=== PATIENT | female | born 1930 | race Caucasian/White ===

== ENCOUNTER 2017-11-26 11:44 | Emergency (ER) | payer OTHER, MEDICARE ==
[2017-11-26 12:22] VITALS: BP 150/79; PULSE 68; TEMP 98.6; BMI 23.2
--- NOTE | 2017-11-26 12:23 | PDOC ---
History of Present Illness - General Chief Complaint: Injury Stated Complaint: TRIP AND FALL Time Seen by Provider: 11/26/17 11:47 - History of Present Illness Initial Comments: 11/26/17 12:18 87yo F hx HTN, colon ca in remission p/w fall. [facility] Pt was walking in the hallway and tripped on uneven carpet. Pt reports head strike and states her glasses cut into the bridge of her nose causing bleeding. No LOC, remembers the entire event. Denies other injruies. Pt takes aspirin daily, no other AC. Denies mccollum, blurry vision, dizziness, weakness , numbness. States other than her lac bothering her, she has no other sxs. Does not remember last tdap. Able to ambulate post fall. EMS reports pt had complained of R rib pain but pt currently denies. Past History - Past Medical History Allergies/Adverse Reactions: Allergies Allergy/AdvReac Type Severity Reaction Status Date / Time Penicillins Allergy Unknown Verified 11/26/17 12:03 Home Medications: Ambulatory Orders Ascorbic Acid [Vitamin C] 500 mg PO DAILY 11/26/17 Aspirin [Aspirin EC] 81 mg PO DAILY 11/26/17 Calcium Carbonate/Vitamin D3 [Calcium 600 + Vitamin D Sftgl] 1 each PO DAILY Cholecalciferol (Vitamin D3) [Vitamin D3] 1,000 unit PO DAILY 11/26/17 Cyanocobalamin (Vitamin B-12) [B-12] 1,000 mcg PO DAILY 11/26/17 Isosorbide Mononitrate [Isosorbide Mononitrate ER] 30 mg PO DAILY 11/26/17 Levothyroxine [Synthroid -] 50 mcg PO DAILY 11/26/17 Losartan Potassium [Cozaar] 100 mg PO DAILY 11/26/17 Metoprolol Tartrate 12.5 mg PO BID 11/26/17 Multivit-Min/Iron/Folic/Lutein [Centrum Silver Women Tablet] 1 each PO DAILY Cancer: Yes (COLON) COPD: No - Surgical History Abdominal Surgery: Yes (FISTULA REPAIR, TEMPORARY OSTOMY (CLOSED)) GI Surgery: Yes (COLON RESECTION) - Suicide/Smoking/Psychosocial Hx Smoking History: Never smoked Hx Alcohol Use: Yes Drug/Substance Use Hx: No Substance Use Type: None Review of Systems - Review of Systems Comments:: 11/26/17 13:09 GENERAL/CONSTITUTIONAL: No fever or chills. No weakness. +fall HEAD, EYES, EARS, NOSE AND THROAT: No change in vision. No ear pain or discharge. No sore throat. GASTROINTESTINAL: No nausea, vomiting, diarrhea or constipation. GENITOURINARY: No dysuria, frequency, or change in urination. CARDIOVASCULAR: No chest pain or shortness of breath. RESPIRATORY: No cough, wheezing, or hemoptysis. MUSCULOSKELETAL: No joint or muscle swelling or pain. No neck or back pain. SKIN: +forehead lac NEUROLOGIC: No headache, vertigo, loss of consciousness, or change in strength/ sensation. ENDOCRINE: No increased thirst. No abnormal weight change. HEMATOLOGIC/LYMPHATIC: No anemia, easy bleeding, or history of blood clots. ALLERGIC/IMMUNOLOGIC: No hives or skin allergy. *Physical Exam - Vital Signs Last Vital Signs Temp Pulse Resp BP Pulse Ox 98.6 F 68 16 150/79 100 11/26/17 11:45 11/26/17 11:45 11/26/17 11:45 11/26/17 11:45 11/26/17 11:45 - Physical Exam Comments: 11/26/17 13:09 GENERAL: Awake, alert, and fully oriented, in no acute distress HEAD: See skin exam, no bony edema or ttp over nasal bridge, no other bony ttp or deformities EYES: PERRLA, EOMI, sclera anicteric, conjunctiva clear ENT: Auricles normal inspection, hearing grossly normal, nares patent, oropharynx clear without exudates. Moist mucosa NECK: Normal ROM, supple, no lymphadenopathy, JVD, or masses LUNGS: Breath sounds equal, clear to auscultation bilaterally. No wheezes, and no crackles HEART: Regular rate and rhythm, normal S1 and S2, no murmurs, rubs or gallops ABDOMEN: Soft, nontender, normoactive bowel sounds. No guarding, no rebound. No masses EXTREMITIES: Normal range of motion, no edema. No clubbing or cyanosis. No cords, erythema, or tenderness NEUROLOGICAL: Normal speech, cranial nerves intact, negative pronator drift, 5/ 5 strength in all 4 extremities, normal sensation to light touch in all 4 extremities, normal cerebellar exam, normal gait, normal reflexes and tone SKIN: 1cm horizontal lac in glabella. Otherwise, warm, Dry, normal turgor, no rashes or lesions noted. Medical Decision Making - Medical Decision Making 11/26/17 13:11 87yo F presents with mechanical fall after tripping on uneven carpet. Given head strike and age, will obtain CTH, Ct c-spine. No need for CT facial bones as no facial bony edema to ttp. WIll update tetanus as well. No other traumatic injury on exam. In light of EMS reporting R rib pain in transport, will get CXR although unlikely fracture as she denies current pain, SOB and has no hypoxia, ttp on exam. 11/26/17 14:12 CTH, c-spine with no acute fractures, ICH. Tdap updated. Lac repaired. Pt well appearing, pleasant, has no complaints. Requests DC home. Pt stable for DC to assisted living facility. I discussed the physical exam findings, ancillary test results and final diagnoses with the patient. I answered all of the patient's questions. The patient was satisfied with the care received and felt comfortable with the discharge plan and treatment plan. The patient will call their primary care physician within 24 hours to arrange follow-up and will return to the Emergency Department with any new, persistent or worsening symptoms. *DC/Admit/Observation/Transfer Diagnosis at time of Disposition: Fall, Laceration - Discharge Dispostion Disposition: HOME Condition at time of disposition: Good Decision to Admit order: No - Referrals Referrals: Obinna Simon MD [Primary Care Provider] - - Patient Instructions Printed Discharge Instructions: DI for Suture Removal, How to Prevent Falls Additional Instructions: Follow up with your primary doctor in 2-3 days. REturn to the emergency room if you have any redness, drainage, severe pain, fevers, or any new, worsening or concerning symptoms. Instructions for wound care: Keep the incision clean and dry for 24 hours. After 24 hours, you may allow the soap and water to rinse off your incision. Avoid direct pressure of the water to the incision. Pat the incision dry with a clean cloth. Apply a small amount of bacitracin onto the incision. Cover the incision loosely with a bandaid. Take tylenol as needed for pain. Return to the emergency department or to urgent care in 4 days for suture removal. - Post Discharge Activity - Attestations Physician Attestion: 11/26/17 14:17 I, Dr. Renetta Lepe MD, attest that this document has been prepared under my direction and personally reviewed by me in its entirety. I further attest, that it accurately reflects all work, treatment, procedures and medical decision -making performed by me.
[2017-11-26] MEDS ORDERED: DIPHTH,PERTUSS(ACELL),TET 0.5 ML DISP.SYRIN IM ONE (13:05)
== END 2017-11-26 15:21 | disposition home or self-care (01) ==
LOC: SUPCPDRO 11:44 → FER 11:44
PROC: 09QKXZZ Repair Nasal Mucosa and Soft Tissue, External Approach (ICD-10-PCS; principal; 2017-11-26)
PROC: 3E0234Z Introduction of Serum, Toxoid and Vaccine into Muscle, Percutaneous Approach (ICD-10-PCS; 2017-11-26)
DX: S01.21XA Laceration without foreign body of nose, initial encounter (principal); W01.198A Fall on same level from slipping, tripping and stumbling with subsequent striking against other object, initial encounter; Y93.01 Activity, walking, marching and hiking; Y92.098 Other place in other non-institutional residence as the place of occurrence of the external cause; I10 Essential (primary) hypertension; Z85.038 Personal history of other malignant neoplasm of large intestine; Z79.82 Long term (current) use of aspirin; Z88.0 Allergy status to penicillin
CPT/HCPCS: 12011; 70450-TC; 71046-TC-FY; 72125-TC; 90471; 90715; 99283-25

== ENCOUNTER 2017-12-01 08:41 | Emergency (ER) | payer OTHER, MEDICARE ==
[2017-12-01 08:45] VITALS: BP 145/86; PULSE 71; TEMP 98.2; BMI 23.2
--- NOTE | 2017-12-01 09:03 | PDOC ---
Suture Removal/Wound Check HPI - History of Present Illness Chief Complaint: Suture/Staple Removal(Here) Stated Complaint: suture removal Time Seen by Provider: 12/01/17 08:54 History Source: Yes: Patient Past History - Past Medical History Allergies/Adverse Reactions: Allergies Allergy/AdvReac Type Severity Reaction Status Date / Time Penicillins Allergy Unknown Verified 12/01/17 08:42 Home Medications: Ambulatory Orders Ascorbic Acid [Vitamin C] 500 mg PO DAILY 11/26/17 Aspirin [Aspirin EC] 81 mg PO DAILY 11/26/17 Calcium Carbonate/Vitamin D3 [Calcium 600 + Vitamin D Sftgl] 1 each PO DAILY Cholecalciferol (Vitamin D3) [Vitamin D3] 1,000 unit PO DAILY 11/26/17 Cyanocobalamin (Vitamin B-12) [B-12] 1,000 mcg PO DAILY 11/26/17 Isosorbide Mononitrate [Isosorbide Mononitrate ER] 30 mg PO DAILY 11/26/17 Levothyroxine [Synthroid -] 50 mcg PO DAILY 11/26/17 Losartan Potassium [Cozaar] 100 mg PO DAILY 11/26/17 Metoprolol Tartrate 12.5 mg PO BID 11/26/17 Multivit-Min/Iron/Folic/Lutein [Centrum Silver Women Tablet] 1 each PO DAILY Cancer: Yes (COLON) COPD: No DVT: No - Surgical History Abdominal Surgery: Yes (FISTULA REPAIR, TEMPORARY OSTOMY (CLOSED)) GI Surgery: Yes (COLON RESECTION) - Suicide/Smoking/Psychosocial Hx Smoking History: Never smoked Hx Alcohol Use: No Drug/Substance Use Hx: No Substance Use Type: None *Physical Exam - Vital Signs Last Vital Signs Temp Pulse Resp BP Pulse Ox 98.2 F 71 18 145/86 97 12/01/17 08:41 12/01/17 08:41 12/01/17 08:41 12/01/17 08:41 12/01/17 08:41 *DC/Admit/Observation/Transfer - Discharge Dispostion Condition at time of disposition: Stable - Referrals Referrals: Obinna Simon MD [Primary Care Provider] - - Patient Instructions - Post Discharge Activity
--- NOTE | 2017-12-01 09:05 | PDOC ---
History of Present Illness - General Chief Complaint: Suture/Staple Removal(Here) Stated Complaint: suture removal Time Seen by Provider: 12/01/17 08:54 - History of Present Illness Initial Comments: 12/01/17 09:06 Patient is an 87 year old female with a PMH of HTN and Colon CA (s/p resection) who presents to our ED this morning for suture removal over her glabella. Patient states she was walking in the hallway of her assisted living facility last week when she tripped on the carpet and fell hitting her head without LOC. As per EMR patient was evaluated in our ED on 11/[address]/C- spine were negative for acute bleed. Laceration repair with 3 simple interrupted sutures. Patient reports no swelling or discharge from the area. Past History - Past Medical History Allergies/Adverse Reactions: Allergies Allergy/AdvReac Type Severity Reaction Status Date / Time Penicillins Allergy Unknown Verified 12/01/17 08:42 Home Medications: Ambulatory Orders Ascorbic Acid [Vitamin C] 500 mg PO DAILY 11/26/17 Aspirin [Aspirin EC] 81 mg PO DAILY 11/26/17 Calcium Carbonate/Vitamin D3 [Calcium 600 + Vitamin D Sftgl] 1 each PO DAILY Cholecalciferol (Vitamin D3) [Vitamin D3] 1,000 unit PO DAILY 11/26/17 Cyanocobalamin (Vitamin B-12) [B-12] 1,000 mcg PO DAILY 11/26/17 Isosorbide Mononitrate [Isosorbide Mononitrate ER] 30 mg PO DAILY 11/26/17 Levothyroxine [Synthroid -] 50 mcg PO DAILY 11/26/17 Losartan Potassium [Cozaar] 100 mg PO DAILY 11/26/17 Metoprolol Tartrate 12.5 mg PO BID 11/26/17 Multivit-Min/Iron/Folic/Lutein [Centrum Silver Women Tablet] 1 each PO DAILY Cancer: Yes (COLON) COPD: No DVT: No - Surgical History Abdominal Surgery: Yes (FISTULA REPAIR, TEMPORARY OSTOMY (CLOSED)) GI Surgery: Yes (COLON RESECTION) - Suicide/Smoking/Psychosocial Hx Smoking History: Never smoked Hx Alcohol Use: No Drug/Substance Use Hx: No Substance Use Type: None Review of Systems - Review of Systems Constitutional: No: Chills, Fever HEENTM: No: Blurred Vision Respiratory: No: Cough, Shortness of Breath, Stridor, Wheezing Cardiac (ROS): No: Chest Pain, Irregular Heart Rate, Lightheadedness, Palpitations, Syncope ABD/GI: No: Constipated, Diarrhea, Nausea, Vomiting *Physical Exam - Vital Signs Last Vital Signs Temp Pulse Resp BP Pulse Ox 98.2 F 71 18 145/86 97 12/01/17 08:41 12/01/17 08:41 12/01/17 08:41 12/01/17 08:41 12/01/17 08:41 - Physical Exam General Appearance: Yes: Nourished, Appropriately Dressed HEENT: positive: EOMI, BRENDAN, Other (2 cm healing laceration over glabella; multiple areas of facial ecchymosis and small hematoma over L zygomatic arch; no abrasions/no Haro sign, no mastoid discoloration) Respiratory/Chest: positive: Lungs Clear, Normal Breath Sounds Medical Decision Making - Medical Decision Making 12/01/17 09:20 87 year old female presents for suture removal s/p mechanical fall. Three simple interrupted sutures over glabella, good granulation tissue, no edema/ erythema. Suture removal with minimal wound disruption. Patient counseled to limit sun exposure and discharged home. *DC/Admit/Observation/Transfer Diagnosis at time of Disposition: Visit for suture removal - Discharge Dispostion Disposition: HOME Condition at time of disposition: Good Decision to Admit order: No - Referrals Referrals: Obinna Simon MD [Primary Care Provider] - - Patient Instructions Printed Discharge Instructions: DI for Suture Removal Additional Instructions: Please continue to limit sun exposure and when washing your face be careful when washing the area where your sutures were removed. Return to the Emergency Department for any new/worsening/concerning symptoms. - Post Discharge Activity
--- NOTE | 2017-12-01 09:09 | PDOC ---
Attending Attestation - Resident Resident Name: Gretta Chappell - ED Attending Attestation I have performed the following: I have examined & evaluated the patient, The case was reviewed & discussed with the resident, I agree w/resident's findings & plan, Exceptions are as noted - HPI HPI: 12/01/17 09:18 87 year old F c/ hx HTN, colon ca p/w suture removal. Denies any complaints. Requesting suture removal. - Physicial Exam PE: 12/01/17 09:18 GENERAL: Awake, alert, and fully oriented, in no acute distress HEAD: No signs of trauma EYES:EOMI, sclera anicteric, conjunctiva clear ENT: Auricles normal inspection, hearing grossly normal, nares patent. Well healing, well granulated ~2 cm healing laceration on bridge of nose. NECK: Normal ROM, supple EXTREMITIES: Normal range of motion, no edema. No clubbing or cyanosis. No cords, erythema, or tenderness NEUROLOGICAL: Cranial nerves II through XII grossly intact. Normal speech, normal gait SKIN: Warm, Dry, normal turgor, no rashes or lesions noted. - Medical Decision Making 12/01/17 09:19 Vital Signs Temp Pulse Resp BP Pulse Ox 98.2 F 71 18 145/86 97 12/01/17 08:41 12/01/17 08:41 12/01/17 08:41 12/01/17 08:41 12/01/17 08:[address] resident Dr[address] Chappell's plan. Sutures can be removed. [address] Chappell. Scar precautions given.
== END 2017-12-01 09:10 | disposition home or self-care (01) ==
LOC: FER 08:41
DX: Z48.02 Encounter for removal of sutures (principal)
CPT/HCPCS: 99281-25